=== PATIENT | male | born 1965 | race Caucasian/White ===

== ENCOUNTER → 2018-06-28 12:36 | Outpatient (CLI) | payer OTHER, SELFPAY ==
[2018-06-20 15:51] VITALS: BMI 31.3
--- NOTE | 2018-06-28 12:42 | CT_ITS ---
STUDY: CT CHEST WITH CONTRAST REASON FOR EXAM: Male, 52 years old. Thoracic aortic aneurysm RADIATION DOSAGE (If Supplied By Facility): CTDIvol = ( 16.62 ) mGy, DLP = ( 729.68 ) mGycm TECHNIQUE: Transaxial imaging was performed following intravenous administration of 100ml ml of Isovue 300 contrast material. Multiplanar coronal and sagittal images were reformatted. Individualized dose optimization techniques were used for this CT. COMPARISON: None. FINDINGS: The lungs are normal. There is no demonstrated pleural abnormality. Normal heart and pericardium. Normal mediastinum. Normal hilar regions. Normal enhanced pulmonary arteries. Minimal ectasia ascending thoracic aorta with axial diameter measures 3.8 cm as measured at the level of the right main pulmonary artery. No thoracic aortic dissection. There are multi-level degenerative changes of the thoracic spine. There is no demonstrated abnormality of the visualized upper abdomen. CT/Chest WITH Contrast IMPRESSION: 1. Minimal aneurysmal ectasia of the ascending thoracic aorta. No thoracic aortic dissection. Electronically Signed: Irineo Proctor MD at 14:35 EST , Service support ,
--- NOTE | 2018-06-28 12:42 | ECHOD_ITS ---
Reason For Study: BICUSPID AV Procedure This was a 2D Doppler, Color Flow transthoracic echocardiogram. Exam performed in department. Left Ventricle Normal LV size. The estimated ejection fraction is 55 %. Left ventricular systolic function is normal. Stage 1 diastolic dysfunction. No regional wall motion abnormalities noted. Right Ventricle Normal RV size. Normal systolic function. Atria Normal left atrium. Normal right atrium. Patent foramen ovale. Mitral Valve Normal mitral valve. Systolic anterior motion of the mitral valve. Tricuspid Valve Normal tricuspid valve. Mild (1+) tricuspid valve insufficiency. Pulmonary artery systolic pressure is 28 mmHg. Aortic Valve Trisinus/trileaflet aortic valve. Moderate focal aortic valve calcification. Peak aortic valve gradient 26 mmHg. Mean aortic valve gradient 17 mmHg. Mild aortic stenosis. Mild (1+) aortic valve insufficiency. Pulmonic Valve Normal pulmonic valve. Great Vessels Normal aortic root. The pulmonary artery is normal size. Normal inferior vena cava. Pericardium/Pleural No pericardial effusion. Medication 22 gauge I.V. with prn adaptor inserted into right arm. Performed a rapid injection of agitated mix of 9 cc saline and 1cc air to assess for atrial septal defect. MMode/2D Measurements & Calculations LVIDd: 4.7 cm IVSd: 1.3 cm LVOT diam: 2.0 cm LVIDs: 3.1 cm LVPWd: 1.0 cm RVDd: 4.2 cm FS: 33.8 % LVOT area: 3.0 cm2 Ao root diam: 3.9 cm LAV(MOD-bp): 60.2 ml LVAd ap4: 48.7 cm2 LAV(MOD-bp) Indexed: 26.6 ml/m2 EDV(MOD-sp4): 194.9 ml LAV(MOD-sp2): 87.5 ml EDV(sp4-el): 205.0 ml LAV(MOD-sp4): 38.8 ml LVAs ap4: 28.3 cm2 ESV(MOD-sp4): 78.3 ml ESV(sp4-el): 83.6 ml EF(MOD-sp4): 59.8 % EF(sp4-el): 59.2 % SV(MOD-sp4): 116.6 ml SV(sp4-el): 121.5 ml Aortic Valve Planimetry: 1.5 cm2 LA A4 area: 16.2 cm2 LA dimension(2D): 3.3 cm RA A4 area: 15.4 cm2 Time Measurements MV dec time: 0.30 sec Doppler Measurements & Calculations MV E max rick: 59.9 cm/sec Lat Peak E' Rick: 10.0 cm/sec Med Peak E' Rick: 7.0 cm/sec MV A max rick: 78.0 cm/sec E/E' lat: 6.0 E/E' med: 8.5 MV E/A: 0.77 Ao V2 max: 256.5 cm/sec AI max rick: 393.4 cm/sec LV V1 max: 122.1 cm/sec Ao max P.3 mmHg AI max P.0 mmHg LV V1 max P.0 mmHg Ao V2 mean: 193.4 cm/sec AI dec slope: 309.6 cm/sec2 Ao mean P.4 mmHg AI P1/2t: 372.2 msec Ao V2 VTI: 63.3 cm KELVIN(V,D): 1.4 cm2 PA V2 max: 91.1 cm/sec TR max rick: 243.3 cm/sec TR max P.7 mmHg Interpretation Summary Mean aortic valve gradient 17 mmHg. Mild aortic stenosis. Normal LV size. The estimated ejection fraction is 55 %. Left ventricular systolic function is normal. Stage 1 diastolic dysfunction. Patent foramen ovale. Mild (1+) tricuspid valve insufficiency. Trisinus/trileaflet aortic valve. Moderate focal aortic valve calcification. Ordering Physician: Milton Lund Referring Physician: TRICIA CONTRERAS Performed By: Anitha Curran RDCS
== END ==
PROVIDERS: Family Provider Internal Medicine; PCP Internal Medicine; Referring Provider Internal Medicine Cardiovascular Disease; Visit Provider Internal Medicine Cardiovascular Disease
DX: I77.810 Thoracic aortic ectasia (principal); Q23.1 Congenital insufficiency of aortic valve
CPT/HCPCS: 71260; 93306; Q9967; A4216

== ENCOUNTER → 2024-07-23 | Outpatient (CLI) | payer OTHER, SELFPAY ==
--- NOTE | 2024-07-23 12:46 | ECHOD_ITS ---
Reason For Study : Eval Procedure This was a 2D Doppler, Color Flow transthoracic echocardiogram. Exam performed in department. Left Ventricle Normal LV size. The left ventricular ejection fraction is 65 %. Stage 1 diastolic dysfunction. No regional wall motion abnormalities noted. Right Ventricle Normal RV size. Normal systolic function. Atria Normal left atrium. Normal right atrium. Hypermobile atrial septum. Mitral Valve Normal mitral valve. Systolic anterior motion of the mitral valve. Tricuspid Valve Normal tricuspid valve. Mild tricuspid valve insufficiency. Pulmonary artery systolic pressure is 28 mmHg. Aortic Valve Moderate focal aortic valve calcification. Bicuspid aortic valve. Mild aortic stenosis. Peak aortic valve gradient 45 mmHg. Mean aortic valve gradient 26 mmHg. Mild (1+) aortic valve insufficiency. Pulmonic Valve Normal pulmonic valve. Great Vessels Mild to moderately dilated aortic root. The pulmonary artery is normal size. Inferior vena cava collapse with respiration. Pericardium/Pleural No pericardial effusion. MMode/2D Measurements & Calculations LVIDd: 4.9 cm IVSd: 1.1 cm LVOT diam: 2.0 cm LVIDs: 2.8 cm LVPWd: 1.2 cm LVOT area: 3.3 cm2 RVDd: 3.9 cm FS: 43.1 % Ao root diam: 4.2 cm LAV(MOD-bp): 41.9 ml LVAd ap4: 36.3 cm2 LAV(MOD-bp) Indexed: 19.0 ml/m2 LVLd ap4: 9.4 cm LAV(MOD-sp2): 49.2 ml EDV(MOD-sp4): 113.4 ml LAV(MOD-sp4): 34.2 ml EDV(sp4-el): 118.7 ml LVAs ap4: 18.0 cm2 LVLs ap4: 7.3 cm ESV(MOD-sp4): 38.0 ml ESV(sp4-el): 37.5 ml EF(MOD-sp4): 66.5 % EF(sp4-el): 68.4 % SV(MOD-sp4): 75.4 ml SV(sp4-el): 81.2 ml LA A4 area: 14.5 cm2 SI(MOD-sp4): 34.2 ml/m2 LA dimension(2D): 3.4 cm RA A4 area: 13.1 cm2 TAPSE: 2.1 cm Time Measurements MV dec time: 0.29 sec Doppler Measurements & Calculations MV E max rick: 60.0 cm/sec Lat Peak E' Rick: 10.8 cm/sec Med Peak E' Rick: 6.4 cm/sec MV A max rick: 87.4 cm/sec E/E' lat: 5.5 E/E' med: 9.4 MV E/A: 0.69 Ao V2 max: 333.9 cm/sec AI max rick: 325.5 cm/sec MV dec slope: 204.8 cm/sec2 Ao max P.6 mmHg AI max P.7 mmHg
== END | disposition home or self-care (01) ==
PROVIDERS: PCP Internal Medicine; Referring Provider Nurse Practitioner Family; Visit Provider Nurse Practitioner Family
DX: I35.2 Nonrheumatic aortic (valve) stenosis with insufficiency (principal); I10 Essential (primary) hypertension; I77.810 Thoracic aortic ectasia
CPT/HCPCS: 93306

== ENCOUNTER 2024-08-01 11:48 | Emergency (ER) | payer OTHER, SELFPAY ==
[2024-08-01 11:48] VITALS: BP 136/73; PULSE 58; RESP 14; TEMP 36.2; O2SAT 99; BMI 29.9
[2024-08-01 12:48] VITALS: BP 135/71; PULSE 59; RESP 14; O2SAT 98
[2024-08-01 13:00] VITALS: BP 141/82; PULSE 62; RESP 14; O2SAT 98
[2024-08-01] MEDS: Lidocaine 1% (20 ml mdv) 20 ML Vial INFILT (13:07)
--- NOTE | 2024-08-01 13:10 | RAD_ITS ---
PROCEDURE: FINGER(S) MIN 2 VIEWS 08/01/2024 REASON FOR EXAM: INJURY TECHNIQUE: 3 view(s) of the right index finger COMPARISON: None FINDINGS: There is an acute fracture of the tuft of the distal phalanx of the index finger with a displaced fragment on the radial side.There is also a soft tissue deformity in this region with a couple of small radiopaque fragments, which may represent bone fragments or foreign bodies. RAD/Finger(s) Min 2 Views IMPRESSION: As above. Reading Location: [facility]
[2024-08-01 14:00] VITALS: BP 140/80; PULSE 58; RESP 14; O2SAT 99
[2024-08-01 15:00] VITALS: BP 132/76; PULSE 71; RESP 14; O2SAT 98
--- NOTE | 2024-08-01 15:04 | EX.ED.GENINJ ---
HPI History of Present Illness Chief Complaint: Laceration Narrative Narrative: Chief complaint and HPI: Right index finger injury. 58-year-old male with past medical history of HTN presents for evaluation of right index finger injury. Patient states that he is retired and does work around his house for fun. He was trying to make a chainsaw when he got his right index finger crushed. Obvious laceration. Not on blood thinners. Up-to-date on tetanus. Denies any numbness or tingling. Denies injury elsewhere. Right handed. Review of systems: See HPI Medications: As listed on the chart Allergies: As listed on the chart PFSH: Per chart Vital signs: As listed on the chart. Reviewed. Physical exam: Gen: A&O x3, NAD Head: Normocephalic, atraumatic Eyes: No sclera icterus, conjunctiva clear ENT: Moist mucous membranes Neck: Full range of motion CV: Regular rate Resp: Nonlabored respiration Musc: Full ROM of the right upper extremity including the wrist/hand/fingers/and thumb, distal right index finger with crush injury-laceration and tissue loss, the radial aspect of his index finger nail is broken with suspected nailbed injury, good capillary refill, sensation intact, radial/ulnar pulse +2 Skin: Warm, dry Neuro: Alert, oriented, grossly intact, sensation intact Psych: Cooperative, appropriate mood and affect [facility] Medical History Aortic ectasia, thoracic Aortic valve calcification Essential (primary) hypertension Obesity Patent foramen ovale Home Medications ?Medication ?Instructions ?Recorded ?Last Taken ?Type losartan 25 mg tablet 12.5 mg PO DAILY 09/18/23 Unknown History cephalexin 500 mg capsule 500 mg PO Q6H 7 days #28 caps 08/01/24 Unknown Rx Allergy/AdvReac Type Severity Reaction Status Date / Time No Known Allergies Allergy Verified 08/01/24 11:49 Family History Brother Heart disease BAV Father Heart disease Surgical History History of nasal septoplasty Social History Smoking Status: Never smoker alcohol intake: never substance use type: does not use caffeine: No EXAM Physical Exam Const Vital Signs: 08/01/24 11:48 08/01/24 12:48 08/01/24 13:00 Temperature 97.1 F L Temperature Source Temporal Pulse Rate 58 L 59 L 62 Respiratory Rate 14 14 14 Blood Pressure 136/73 H 135/71 H 141/82 H Blood Pressure Mean 94 92 101 Pulse Ox 99 98 98 Oxygen Delivery Method Room Air Room Air Room Air 08/01/24 14:00 08/01/24 15:00 Temperature Temperature Source Pulse Rate 58 L 71 Respiratory Rate 14 14 Blood Pressure 140/80 H 132/76 H Blood Pressure Mean 100 94 Pulse Ox 99 98 Oxygen Delivery Method Room Air Room Air MDM MDM MDM Narrative Medical decision making narrative: 58-year-old male with past medical history of HTN presents for evaluation of right index finger injury. See physical exam findings. Patient is up-to-date on tetanus. Differential diagnosis includes but is not limited to open tuft fracture, laceration, nailbed injury. Patient offered pain medicine but declined. X-ray of the finger ordered. X-ray of the finger was personally reviewed and interpreted by pr, ED physician. Patient has a distal tuft fracture of the right index finger. This is an open fracture. Keflex ordered. Patient will be discharged home on a 7-day course of Keflex as well. Laceration was repaired. Patient tolerated this well. Splint applied. Patient to follow-up with hand surgeon. Education given on sutures and splint. Return precautions explained. Patient discharged home. Laceration Repair Indication: Laceration Location: Dorsal aspect of the right index finger, approximately 2 cm but mangled Consent: Risks, benefits, and alternatives discussed with patient and consent obtained Procedure: The area was prepped and draped in the usual sterile fashion. Local anesthesia was achieved using 1% Lidocaine without epinephrine. The wound was copiously irrigated and cleaned with surgical scrub. Using sterile scissors, the radial aspect of the nail was from the nailbed and removed as it was broken. There is a nailbed injury. 9 sutures were placed using 4-0 Ethilon in an interrupted fashion to close laceration/mangled tissue. 4 sutures were placed using 4-0 Vicryl in an interrupted fashion to close nailbed injury. The estimated blood loss was minimal. Bacitracin applied with Xeroform gauze over the partly removed nail. The patient tolerated the procedure well without complications. Foreign Material: None Debridement: Removed soft tissue at the distal tip of the finger that could not be repaired. Removed partial nail. Follow-up: Anticipatory guidance, as well as standard post-procedure care, was explained. Return precautions are given. Follow-up visit set for suture removal and evaluation of the laceration. Impression: 1. Open distal tuft fracture of the right index finger 2. Nailbed injury 3. Laceration, status post repaired Radiography Diagnostic Testing: Clinical Impression(s) from Imaging Studies Finger X-Ray 08/01/24 13:10 IMPRESSION: As above. Reading Location: [facility] Discharge Plan Triage Chief Complaint: Laceration ED Provider: Ariel Cerrato Dx/Rx/DC Orders Clinical Impression: Open fracture of tuft of distal phalanx of finger, Laceration Instructions: ED Fracture, Finger, Open, ED Laceration, All Closures Prescriptions: New cephalexin 500 mg capsule 500 mg PO Q6H 7 Days Qty: 28 0RF No Action losartan 25 mg tablet 12.5 mg PO DAILY Primary Care Provider: Orville Quintero Referrals: Keith Acosta MD [Med Staff - Active Staff] - 3-5 Days Orville Quintero MD [Primary Care Provider] - 3-5 Days Activity Restrictions/Additional Instructions: Splint needs to remain on at all times. Splint cannot get wet. Take all of your antibiotics. Sutures need to be removed in 7 days. Return back to the ED if symptoms change or worsen. Follow-up with Dr. Acosta. Call to make an appointment. Nonweightbearing to the finger. Print Language: Mosotho Disposition Disposition: Home, Self Care Discharge Date/Time: 08/01/24 15:26
[2024-08-01] MEDS: Cephalexin 250 MG Capsule 500 MG PO (15:22)
== END 2024-08-01 15:26 | disposition home or self-care (01) ==
PROVIDERS: Emergency Provider Surgery; PCP Internal Medicine; Referring Provider Surgery; Visit Provider Surgery
DX: S62.660B Nondisplaced fracture of distal phalanx of right index finger, initial encounter for open fracture (principal); I10 Essential (primary) hypertension; W23.2XXA Caught, crushed, jammed or pinched between a moving and stationary object, initial encounter; Y93.89 Activity, other specified; Y92.019 Unspecified place in single-family (private) house as the place of occurrence of the external cause
CPT/HCPCS: 11760; 12001; 73140; 99283

== ENCOUNTER 2024-12-13 08:10 | Emergency (ER) | payer OTHER, SELFPAY ==
[2024-12-13 08:11] VITALS: BP 150/87; PULSE 82; RESP 14; TEMP 36.6; O2SAT 100; BMI 29.7
--- NOTE | 2024-12-13 08:35 | RAD_ITS ---
PROCEDURE: HAND MIN 3 VIEWS 12/13/2024 REASON FOR EXAM: CHAINSAW VS FINGERS 4-5, PAIN TECHNIQUE: HAND MIN 3 VIEWS Laterality: Right COMPARISON: August 01, 2024 FINDINGS: Bones: No fracture is seen. Joints: No dislocation Soft tissues: Soft tissue amputation of the distal portions of the 4th and 5th digits. This is greater involving the 4th digit. Other: No radiopaque foreign body RAD/Hand Min 3 Views IMPRESSION: 1. No fracture. Soft tissue injury distal 4th and 5th digit. No foreign body . Reading Location: [id number]
--- NOTE | 2024-12-13 08:52 | EX.ED.UPPERE ---
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 He is right-hand dominant. Tetanus Immunization: <5 years PFSH PFS Medical History Murmur Skin cancer Bone fracture Hypertension Aortic ectasia, thoracic Essential (primary) hypertension Aortic valve calcification Patent foramen ovale Obesity Home Medications ?Medication ?Instructions ?Recorded ?Last Taken ?Type losartan 25 mg tablet 12.5 mg (1/2 x 25 mg) PO DAILY 90 08/05/24 Unknown Rx days #45 tabs Allergy/AdvReac Type Severity Reaction Status Date / Time No Known Allergies Allergy Verified 11/22/24 10:34 Family History Brother Heart disease BAV Father Heart disease Surgical History History of nasal septoplasty Social History Smoking Status: Never smoker alcohol intake: current substance use type: does not use caffeine: No additional social history: pt denies aspirin and ibuprofen use ROS ROS ED Constitutional Constitutional ED: Denies chills or fever(s) Musculoskeletal Musculoskeletal: Reports extremity pain; Denies neck pain Integumentary Reports wounds; Denies rash Neurologic Neurologic: Denies paresthesias or weakness EXAM Physical Exam Const Vital Signs: 12/13/24 08:11 Temperature 98 F Temperature Source Temporal Pulse Rate 82 Respiratory Rate 14 Blood Pressure 150/87 H Blood Pressure Mean 108 Pulse Ox 100 Oxygen Delivery Method Room Air Positive well nourished and well developed General Appearance ED: well developed and NAD Neck full ROM and supple Back/Spine normal ROM and normal to inspection Extremity full ROM Extremity Narrative: Macerated superficial soft tissue wounds to the distal phalanxes of right fingers 4 and 5. The nail is involved in both of them but more so of the fourth finger, but the root of the nail/cuticle is intact in both, and there is no nailbed injury other than possibly abrasion where part of the fourth nail was traumatically removed. There are no lacerations, just epidermal avulsions of the fingertips and some superficial mangling of epidermis. Overall the fingers are intact. FDS, FDP, extensor function intact. No injury to the other fingers or other aspects of the hand. Neuro oriented x3, no focal motor deficits and no sensory deficits noted Sensorium / Orientation: alert Psych mental status grossly normal and thought process normal Skin no wounds Rashes: no rashes MDM MDM MDM Narrative Medical decision making narrative: Three-view x-ray series of the right hand was obtained and on my interpretation there is no acute bony injury. Radiology in agreement. It is also visible on the x-rays how far away from the bones the superficial soft tissue injuries are. Given this, and the lack of deep space/deep soft tissue involvement, I think he can be managed with topical antibiotics and wound care. We did consider suturing, but I do not think it is going to be helpful since all of this is superficial. I did excise a very small piece of residual nail that was distal in the soft tissue wound to keep the tissues from growing out and keep it flat. Discussed briefly with plastics Dr. Acosta with whom the patient was established for a different hand injury, and he said he would be happy to follow-up with him in the office. I discussed home care thoroughly with patient, nurses dressing with iodoform Vaseline impregnated nonstick gauze, bacitracin, dressing. Radiography Diagnostic Testing: Clinical Impression(s) from Imaging Studies Hand X-Ray 12/13/24 08:35 IMPRESSION: 1. No fracture. Soft tissue injury distal 4th and 5th digit. No foreign body. Reading Location: [id number] Management Discussion w/another healthcare provider: Order Processing Clerk Procedures Other Procedures Procedure(s): Excisional debridement right ring finger wound: Very small piece of residual nail, about 1 mm?, excised from over top of wound of nailbed. Tolerated well no complications. Discharge Plan Triage Chief Complaint: Upper Extremity Injury ED Provider: Cornelius John Dx/Rx/DC Orders Clinical Impression: Avulsion of skin of finger, Injury of nail bed of finger of right hand Instructions: ED Skin Tear (Skin Avulsion) Prescriptions: No Action losartan 25 mg tablet 12.5 mg PO DAILY 90 Days Qty: 45 3RF Primary Care Provider: Orville Quintero Referrals: Keith Acotsa MD [Med Staff - Active Staff] - 5-7 Days Print Language: Serbian Disposition Disposition: Home, Self Care
[2024-12-13 09:17] VITALS: BP 134/78; PULSE 64; RESP 18; TEMP 37.2; O2SAT 99
== END 2024-12-13 09:19 | disposition home or self-care (01) ==
PROVIDERS: Emergency Provider Emergency Medicine; PCP Internal Medicine; Visit Provider Emergency Medicine
DX: S61.204A Unspecified open wound of right ring finger without damage to nail, initial encounter (principal); S61.206A Unspecified open wound of right little finger without damage to nail, initial encounter; X58.XXXA Exposure to other specified factors, initial encounter
CPT/HCPCS: 73130; 99282

== ENCOUNTER → 2024-12-19 | Outpatient (CLI) | payer OTHER, SELFPAY ==
--- NOTE | 2024-12-19 14:44 | CT_ITS ---
PROCEDURE: CHEST WITH CONTRAST 12/19/2024 REASON FOR EXAM: DILATED AORTA Follow-up examination. TECHNIQUE: CHEST WITH CONTRAST Coronal and Sagittal reconstruction series were provided. CONTRAST: Isovue 370 VOLUME: 100 mL One or more dose reduction techniques were used (e.g., Automated exposure control, adjustment of the mA and/or kV according to patient size, use of iterative reconstruction technique). RADIATION DOSE SUMMARY: CTDlvol: 15.1 mGy DLP: 688.88 mGycm COMPARISON: Prior study dated June 28, 2018. FINDINGS: Hardware: None Lymph nodes: Small benign-appearing bilateral axillary lymph nodes. Heart and Vasculature: There is dilatation of the root of the ascending aorta measuring 43.7 mm. Mild coronary artery calcification. Lungs and Airways: No evidence of pulmonary nodule or infiltration. Pleura: Unremarkable Upper Abdomen: Fatty infiltration of the liver. Bones: Degenerative changes of the thoracic spine. CT/Chest WITH Contrast IMPRESSION: Coronary artery calcification (CAC) is is present Dilatation of the root of the ascending aorta with a transverse dimension of 43 .7 mm. Reading Location: [id number]
== END | disposition home or self-care (01) ==
LOC: CT 14:42
PROVIDERS: PCP Internal Medicine; Referring Provider Internal Medicine Cardiovascular Disease; Visit Provider Internal Medicine Cardiovascular Disease
DX: I77.810 Thoracic aortic ectasia (principal); I35.2 Nonrheumatic aortic (valve) stenosis with insufficiency
CPT/HCPCS: 71260; Q9967